=== PATIENT | female | born 1950 ===

== ENCOUNTER 2021-08-10 10:30 | Inpatient (IN) | payer OTHER ==
[~2021-08-10] VITALS: Ht 154.9 cm; Wt 57.6 kg
[~2021-08-10 10:30] MED LIST: AMLODIPINE-OLM1 EACH PO; CENTRUM ADULTS1 EACH PO; COZAAR50 MG PO; CRESTOR10 MG PO
[2021-08-16] MEDS ORDERED: AMLODIPINE BESYL5 MG (13:21)
[2021-08-16] MEDS ORDERED: PAIN RELIEVER500 M5 (13:21)
[2021-08-16] MEDS ORDERED: REFRESH RELIEVA10 ML (13:22)
[2021-08-16] MEDS ORDERED: VITAMIN C1000 MG (13:22)
[2021-08-16] MEDS ORDERED: PRESERVISION A1 EAC2 (13:22)
[2021-08-16] MEDS ORDERED: VOLTAREN ARTHRI20 GM (13:22)
[2021-08-16] MEDS ORDERED: HYDROCORTISONE15 G3 (13:22)
[2021-08-16] MEDS ORDERED: FLONASE16 GM (13:22)
== END 2021-08-17 20:11 | DRG 470 ==
LOC: ADM 10:30 → O/R 08-15 06:00 → EDSTATUS 08-15 10:30 → AMB-ENDOS 08-15 10:30 → SURG 08-15 10:30
PROVIDERS: ADMIT Orthopaedic Surgery; ATTEND Orthopaedic Surgery
PROC: 0SRC0J9 Replacement of Right Knee Joint with Synthetic Substitute, Cemented, Open Approach (ICD-10-PCS; principal; 2021-08-15 17:15)
DX: M17.11 Unilateral primary osteoarthritis, right knee (principal); I10 Essential (primary) hypertension